=== PATIENT | female | born 1945 | race Two or more races ===

== ENCOUNTER 2024-02-27 22:09 | Inpatient (IN) | payer MEDICARE, MEDICAID ==
[~2024-02-27] VITALS: Ht 157.5 cm; Wt 68.0 kg
[2024-02-27 22:33] LABS: BASOPHILS # (AUTO) 0.1 K/uL (0.0-0.2); BASOPHILS % (AUTO) 0.8 % (0.0-2.0); EOSINOPHILS # (AUTO) 0.5 K/uL (0.0-0.7); EOSINOPHILS % (AUTO) 6.2 % (0.0-6.0); HEMATOCRIT 36 % (33-45); HEMOGLOBIN 12.4 g/dL (11.5-14.8); LYMPHOCYTES # (AUTO) 2.9 K/uL (0.8-4.8); LYMPHOCYTES % (AUTO) 35.8 % (20.0-44.0); MEAN CORPUSCULAR HEMOGLOBIN 31 PG (26.0-33.0); MEAN CORPUSCULAR HGB CONC 34 g/dl (31.0-36.0); MEAN CORPUSCULAR VOLUME 89 fL (82-100); MONOCYTES # (AUTO) 0.4 K/uL (0.1-1.30); MONOCYTES % (AUTO) 4.9 % (2.0-12.0); NEUTROPHILS # (AUTO) 4.2 K/uL (1.8-8.9); NEUTROPHILS % (AUTO) 52.3 % (43.0-81.0); PLATELET COUNT (AUTO) 346 K/uL (150-450); RED BLOOD CELL COUNT(AUTO) 4.07 MIL/uL (4.0-5.2); RED CELL DISTRIBUTION WIDTH 14.1 % (11.5-15.0)
[2024-02-27 22:40] LABS: CALCIUM, SERUM 8.9 mg/dL (8.5-10.1); CARBON DIOXIDE 27 mmol/L (21-32); CHLORIDE 111 mmol/L (98-107); CREATININE 0.7 mg/dL (0.6-1.3); GLUCOSE 111 mg/dL (74-106); POTASSIUM 3.7 mmol/L (3.5-5.1); SODIUM SERUM 142 mmol/L (136-145); UREA NITROGEN, BLOOD 21 mg/dL (7-18)
[2024-02-27 22:46] LABS: ALANINE AMINOTRANSFERASE 20 U/L (12-78); ALBUMIN 3.2 g/dL (3.4-5.0); ALCOHOL, BLOOD < 3 mg/dL (0-10); ALKALINE PHOSPHATASE 89 U/L (46-116); ASPARTATE AMINOTRANSFERASE 13 U/L (15-37); BILIRUBIN,DIRECT 0.1 mg/dL (0.0-0.2); BILIRUBIN,TOTAL 0.3 mg/dL (0.2-1.0); TOTAL PROTEIN, SERUM 6.5 g/dL (6.4-8.2)
[2024-02-27 22:47] LABS: ACETAMINOPHEN <10 ug/ml (10-30); SALICYLATE 1.1 mg/dL (2.8-20.0)
[2024-02-27 23:49] LABS: APPEARANCE,URINE SLIGHTLY CLOUDY (CLEAR); BILIRUBIN,URINE NEGATIVE (NEGATIVE); BLOOD, URINE NEGATIVE Ery/uL (NEGATIVE); COLOR,URINE YELLOW (YELLOW); KETONES,URINE TRACE mg/dL (NEGATIVE); LEUKOCYTE ESTERASE ,URINE NEGATIVE (NEGATIVE); NITRITE, URINE NEGATIVE (NEGATIVE); PROTEIN,URINE NEGATIVE (NEGATIVE); UGLUCOSE NEGATIVE (NEGATIVE); UROBILINOGEN,URINE 0.2 EU/dL (0.2)
[2024-02-28 00:11] LABS: ADD URINE CULTURE YES; BACTERIA,URINE 4+ /HPF (None Seen); RBC,URINE 0-2 /HPF (0-2); WBC,URINE 0-2 /HPF (0-3)
[2024-02-28 00:28] LABS: AMPHETAMINE, URINE NEGATIVE (NEGATIVE); BARBITURATE, URINE NEGATIVE (NEGATIVE); BENZODIAZEPINE, URINE NEGATIVE (NEGATIVE); CANNABINOID, URINE NEGATIVE (NEGATIVE); COCCAINE, URINE NEGATIVE (NEGATIVE); OPIATE, URINE NEGATIVE (NEGATIVE); PHENCYCLIDINE SCREEN,URINE NEGATIVE (NEGATIVE)
[2024-02-28] MEDS ORDERED: FOLI5VIA2 IJ (05:21)
[2024-02-28] MEDS ORDERED: ACET325T53 PO (05:21)
[2024-02-28] MEDS ORDERED: CYAN100020 SL (05:21)
[2024-02-28] MEDS ORDERED: MEMA5TAB42 PO (05:21)
[2024-02-28] MEDS ORDERED: GABA-532 PO (05:21)
[2024-02-28] MEDS ORDERED: GUAI118L49 PO (05:21)
[2024-02-28] MEDS ORDERED: ACET-2030 PO (05:21)
[2024-02-28] MEDS ORDERED: DULO30CA2 PO (05:21)
[2024-02-28] MEDS ORDERED: ATOR40TA PO (05:21)
[2024-02-28] MEDS ORDERED: CALC-167 PO (05:21)
[2024-02-28] MEDS ORDERED: DONE10TA44 PO (05:21)
[2024-02-28] MEDS ORDERED: MULT-754 PO (07:52)
[2024-02-28] MEDS ORDERED: DONE5TAB34 PO (07:52)
[2024-02-28] MEDS ORDERED: FOLI0.4T6 PO (07:52)
[2024-02-28] MEDS ORDERED: CYAN500T64 PO (07:52)
[2024-02-28] MEDS ORDERED: OLANZAPINE 10 MG VIAL IM ONE (10:15)
[2024-02-28] MEDS: OLANZAPINE 10 MG VIAL IM ONE (10:27)
[2024-02-28 14:54] VITALS: BP 156/70; TEMP 98.2; O2SAT 97
[2024-02-28 15:52] VITALS: BP 122/59; TEMP 97.5; O2SAT 97
[2024-02-28 16:00] VITALS: BP 122/59; TEMP 97.5; O2SAT 97
[2024-02-28] MEDS ORDERED: ZOLPIDEM TARTRATE 5 MG TABLET PO PRN (16:30)
[2024-02-28] MEDS ORDERED: MAG HYDROX/AL HYDROX/SIMETH 30 ML UDC PO PRN (16:30)
[2024-02-28] MEDS ORDERED: MAGNESIUM HYDROXIDE 30 ML UDC PO PRN (16:30)
[2024-02-28] MEDS: BLOOD SUGAR DIAGNOSTIC 1 EACH STRIP IN ONE (16:57)
[2024-02-28] MEDS: GABAPENTIN 100 MG CAPSULE PO SCH (17:54)
[2024-02-28 20:00] VITALS: BP 112/59; TEMP 97.8; O2SAT 96
[2024-02-28] MEDS: DONEPEZIL 5 MG TABLET PO SCH (22:54)
[2024-02-28] MEDS: ATORVASTATIN 40 MG TABLET PO SCH (22:54)
[2024-02-28] MEDS: MEMANTINE HCL 5 MG TABLET PO SCH (22:54)
[2024-02-29 08:00] VITALS: BP 158/76; TEMP 97.5; O2SAT 96
[2024-02-29 08:48] LABS: CHOLESTEROL 160 mg/dL (<200); HDL CHOLESTEROL 39 mg/dL (40-60); LDL 101 mg/dL (0-99); TRIGLYCERIDES 93 mg/dL (30-150)
[2024-02-29] MEDS ORDERED: DULOXETINE HCL 30 MG CAPSULE.DR PO SCH (09:00)
[2024-02-29 09:25] LABS: ALBUMIN 3.2 g/dL (3.4-5.0); BILIRUBIN,TOTAL 0.4 mg/dL (0.2-1.0); CALCIUM, SERUM 9.1 mg/dL (8.5-10.1); CREATININE 0.8 mg/dL (0.6-1.3); POTASSIUM 3.6 mmol/L (3.5-5.1)
[2024-02-29 16:00] VITALS: BP 109/93; TEMP 98; O2SAT 94
[2024-02-29] MEDS: Z GUARD REMEDY 4 OZ OINT TP SCH (16:28)
[2024-02-29] MEDS: GABAPENTIN 100 MG CAPSULE PO SCH (16:28)
[2024-02-29 16:49] LABS: CREATININE 0.7 mg/dL (0.6-1.3)
[2024-02-29 19:49] VITALS: BP 108/60; TEMP 98.1; O2SAT 94
[2024-02-29] MEDS ORDERED: DEXTROSE 50%-WATER 50 ML DISP.SYRIN IV PRN (20:00)
[2024-02-29] MEDS: BLOOD SUGAR DIAGNOSTIC 1 EACH STRIP IN SCH (22:37)
[2024-03-01 08:00] VITALS: BP 144/69; TEMP 98.7; O2SAT 94
[2024-03-01] MEDS: ENSURE ENLIVE CHOC 237 ML CAN PO SCH ×2 (08:14→12:42)
[2024-03-01] MEDS ORDERED: busPIRone 5 MG TABLET PO SCH (13:00)
[2024-03-01] MEDS: INSULIN REGULAR, HUMAN 100 UNIT/ML 3 ML VIAL SQ PRN (13:15)
[2024-03-01 16:00] VITALS: BP 134/100; TEMP 98.1; O2SAT 96
[2024-03-02 08:00] VITALS: BP 138/84; TEMP 97.7; O2SAT 94
[2024-03-02] MEDS: busPIRone 5 MG TABLET PO SCH (09:00)
[2024-03-02] MEDS: QUETIAPINE FUMARATE 25 MG TABLET PO PRN (09:36)
[2024-03-02] MEDS: OXCARBAZEPINE 150 MG TABLET PO SCH (13:29)
[2024-03-02 16:00] VITALS: BP_SYST 137; BP_SYST 93; BP_DIAS 68; BP_DIAS 83; TEMP 97.6; TEMP 98; O2SAT 100; O2SAT 94
[2024-03-02 21:01] VITALS: BP 118/79; TEMP 97.9; O2SAT 96
[2024-03-02] MEDS: MIRTAZAPINE 15 MG TABLET PO SCH (21:28)
[2024-03-03 08:00] VITALS: BP 125/74; TEMP 98.1; O2SAT 97
[2024-03-03] MEDS: OXCARBAZEPINE 150 MG TABLET PO SCH (13:48)
[2024-03-03 16:00] VITALS: BP 123/98; TEMP 98.7; O2SAT 99
[2024-03-03 20:39] VITALS: BP 137/98; TEMP 98.3; O2SAT 95
[2024-03-04 08:00] VITALS: BP 155/90; TEMP 97.9; O2SAT 95
[2024-03-04 16:00] VITALS: BP 100/77; TEMP 98; O2SAT 96
[2024-03-04 20:07] VITALS: BP 123/48; TEMP 98.1; O2SAT 83
[2024-03-05 06:02] VITALS: BP 120/60; TEMP 98
[2024-03-05 08:00] VITALS: BP 139/81; TEMP 97.9; O2SAT 97
[2024-03-05] MEDS: GLUCERNA SHAKE 237 ML CAN PO SCH (08:03)
[2024-03-05 16:00] VITALS: BP 140/71; TEMP 98.1; O2SAT 97
[2024-03-05 20:00] VITALS: BP 120/79; TEMP 98.3; O2SAT 98
[2024-03-06 08:00] VITALS: BP 132/80; TEMP 97.9; O2SAT 96
[2024-03-06 16:00] VITALS: BP 129/71; TEMP 99; O2SAT 95
[2024-03-06 21:01] VITALS: BP 135/84; TEMP 98.8; O2SAT 94
[2024-03-06] MEDS: QUETIAPINE FUMARATE 25 MG TABLET PO SCH (21:33)
[2024-03-07 08:00] VITALS: BP 120/67; TEMP 99; O2SAT 98
[2024-03-07 12:57] VITALS: BP 141/91; TEMP 98.4
[2024-03-07 16:00] VITALS: BP 127/75; TEMP 98.9; O2SAT 98
[2024-03-07 20:00] VITALS: BP 132/72; TEMP 98.9; O2SAT 96
[2024-03-08 08:55] VITALS: BP 133/62; TEMP 98; O2SAT 94
[2024-03-08 15:36] LABS: ALBUMIN 2.6 g/dL (3.4-5.0); BILIRUBIN,TOTAL 0.4 mg/dL (0.2-1.0); CALCIUM, SERUM 9.2 mg/dL (8.5-10.1); CREATININE 0.9 mg/dL (0.6-1.3); POTASSIUM 4.6 mmol/L (3.5-5.1); TOTAL PROTEIN, SERUM 7.4 g/dL (6.4-8.2)
[2024-03-08 15:45] LABS: MAGNESIUM 1.6 mg/dL (1.8-2.4)
[2024-03-08 16:28] LABS: BASOPHILS % (AUTO) 0.4 % (0.0-2.0); EOSINOPHILS # (AUTO) 0.1 K/uL (0.0-0.7); EOSINOPHILS % (AUTO) 0.8 % (0.0-6.0); HEMATOCRIT 39 % (33-45); HEMOGLOBIN 13.2 g/dL (11.5-14.8); LYMPHOCYTES # (AUTO) 1.4 K/uL (0.8-4.8); LYMPHOCYTES % (AUTO) 11.9 % (20.0-44.0); MEAN CORPUSCULAR HEMOGLOBIN 30 PG (26.0-33.0); MEAN CORPUSCULAR HGB CONC 34 g/dl (31.0-36.0); MEAN CORPUSCULAR VOLUME 89 fL (82-100); MONOCYTES % (AUTO) 8.3 % (2.0-12.0); NEUTROPHILS # (AUTO) 9.2 K/uL (1.8-8.9); NEUTROPHILS % (AUTO) 78.6 % (43.0-81.0); PLATELET COUNT (AUTO) 311 K/uL (150-450); RED BLOOD CELL COUNT(AUTO) 4.36 MIL/uL (4.0-5.2); RED CELL DISTRIBUTION WIDTH 13.9 % (11.5-15.0); WHITE BLOOD COUNT (AUTO) 11.7 K/uL (4.3-11.0)
[2024-03-08 21:05] VITALS: BP 146/85; TEMP 98; O2SAT 95
[2024-03-09 07:30] LABS: BASOPHILS # (AUTO) 0.1 K/uL (0.0-0.2); EOSINOPHILS # (AUTO) 0.1 K/uL (0.0-0.7); EOSINOPHILS % (AUTO) 1.1 % (0.0-6.0); HEMATOCRIT 39 % (33-45); HEMOGLOBIN 13.2 g/dL (11.5-14.8); LYMPHOCYTES # (AUTO) 1.9 K/uL (0.8-4.8); LYMPHOCYTES % (AUTO) 17.1 % (20.0-44.0); MEAN CORPUSCULAR HEMOGLOBIN 30 PG (26.0-33.0); MEAN CORPUSCULAR HGB CONC 33 g/dl (31.0-36.0); MEAN CORPUSCULAR VOLUME 90 fL (82-100); MONOCYTES % (AUTO) 8.8 % (2.0-12.0); PLATELET COUNT (AUTO) 311 K/uL (150-450); RED BLOOD CELL COUNT(AUTO) 4.36 MIL/uL (4.0-5.2); RED CELL DISTRIBUTION WIDTH 13.9 % (11.5-15.0); WHITE BLOOD COUNT (AUTO) 11.1 K/uL (4.3-11.0)
[2024-03-09 08:00] VITALS: BP 149/85; TEMP 98.6; O2SAT 94
[2024-03-09 08:35] LABS: CALCIUM, SERUM 9.4 mg/dL (8.5-10.1); CREATININE 0.8 mg/dL (0.6-1.3); MAGNESIUM 2.7 mg/dL (1.8-2.4); PHOSPHORUS 3.8 mg/dL (2.5-4.9); POTASSIUM 4.5 mmol/L (3.5-5.1)
[2024-03-09] MEDS: ACETAMINOPHEN 325 MG TABLET PO PRN (14:52)
[2024-03-09 16:00] VITALS: BP 145/83; TEMP 100.4; O2SAT 93
[2024-03-09 17:54] LABS: APPEARANCE,URINE SLIGHTLY CLOUDY (CLEAR); BILIRUBIN,URINE NEGATIVE (NEGATIVE); BLOOD, URINE 3+ Ery/uL (NEGATIVE); COLOR,URINE YELLOW (YELLOW); KETONES,URINE NEGATIVE (NEGATIVE); LEUKOCYTE ESTERASE ,URINE 3+ (NEGATIVE); NITRITE, URINE NEGATIVE (NEGATIVE); PROTEIN,URINE 2+ mg/dl (NEGATIVE); UGLUCOSE 3+ mg/dL (NEGATIVE)
[2024-03-09 17:57] LABS: PH,URINE 8.5 (5.0-8.0)
[2024-03-09 18:07] LABS: RBC,URINE 51-80 /HPF (0-2); WBC,URINE 51-80 /HPF (0-3)
[2024-03-09 18:08] LABS: ADD URINE CULTURE YES; BACTERIA,URINE 3+ /HPF (None Seen); SQUAMOUS EPITHELIAL CELL,UR 0-2 /HPF (None Seen)
[2024-03-10] MEDS ORDERED: BLOO-668 IN (09:31)
[2024-03-10] MEDS ORDERED: NUT.237L30 PO (09:31)
[2024-03-10] MEDS ORDERED: ZOLP5TAB2 PO (09:31)
[2024-03-10] MEDS ORDERED: ALLA266C2 TP (09:31)
[2024-03-10] MEDS ORDERED: MAGN400O6 PO (09:31)
[2024-03-10] MEDS ORDERED: DEXT50DI8 IV (09:31)
[2024-03-10] MEDS ORDERED: *INS REG3 SQ (09:31)
[2024-03-10] MEDS ORDERED: MAG30ORA PO (09:31)
== END 2024-03-09 19:35 | disposition short-term general hospital (02) | DRG 885 ==
LOC: ER 22:25 → GPS 02-28 10:31
PROVIDERS: ADMIT Psychiatry & Neurology Psychiatry; ATTEND Internal Medicine
DX: F39 Unspecified mood [affective] disorder (principal); E44.1 Mild protein-calorie malnutrition; N39.0 Urinary tract infection, site not specified; G93.40 Encephalopathy, unspecified; F03.918 Unspecified dementia, unspecified severity, with other behavioral disturbance; F03.93 Unspecified dementia, unspecified severity, with mood disturbance; F29 Unspecified psychosis not due to a substance or known physiological condition; E86.0 Dehydration; E78.5 Hyperlipidemia, unspecified; E88.09 Other disorders of plasma-protein metabolism, not elsewhere classified; I10 Essential (primary) hypertension; R62.7 Adult failure to thrive; Z68.27 Body mass index [BMI] 27.0-27.9, adult; Z20.822 Contact with and (suspected) exposure to COVID-19; E11.9 Type 2 diabetes mellitus without complications
CPT/HCPCS: 36415; 71045-TC; 80048-TC; 80053-TC; 80061-TC; 80076-TC; 81001; 82565-TC; 82962-TC; 83735-TC; 84100-TC; 85025-TC; 87040-TC; 87086-TC; 97110-TC; 97112-TC; 97116-TC; 97530-TC; G0480; J1815; J3490

== ENCOUNTER 2024-03-09 19:42 | Inpatient (IN) | payer MEDICARE, OTHER ==
[~2024-03-09] VITALS: Ht 157.5 cm; Wt 51.3 kg
[~2024-03-09 19:42] MED LIST: ACET-2030 PO; ACET325T53 PO; ATOR40TA PO; CALC-167 PO; CYAN500T64 PO; DONE5TAB34 PO; DULO30CA2 PO; FOLI0.4T6 PO; GABA-532 PO; GUAI118L49 PO; MEMA5TAB42 PO; MULT-754 PO
[2024-03-09 20:10] VITALS: BP 149/83; TEMP 100.4; O2SAT 94
[2024-03-09] MEDS ORDERED: ZOLPIDEM TARTRATE 5 MG TABLET PO PRN (21:00)
[2024-03-09] MEDS ORDERED: ACETAMINOPHEN 325 MG TABLET PO PRN (21:00)
[2024-03-09] MEDS ORDERED: Z GUARD REMEDY 4 OZ OINT TP PRN (21:00)
[2024-03-09] MEDS ORDERED: MAGNESIUM HYDROXIDE 30 ML UDC PO PRN (21:00)
[2024-03-09] MEDS ORDERED: MAG HYDROX/AL HYDROX/SIMETH 30 ML UDC PO PRN (21:00)
[2024-03-09] MEDS ORDERED: ONDANSETRON HCL/PF 4 MG/2 ML VIAL IVP PRN (21:00)
[2024-03-09] MEDS: DONEPEZIL 5 MG TABLET PO SCH (22:00)
[2024-03-09] MEDS: MEMANTINE HCL 5 MG TABLET PO SCH (22:00)
[2024-03-09] MEDS: ATORVASTATIN 40 MG TABLET PO SCH (22:00)
[2024-03-09] MEDS: CEFTRIAXONE 1GM BAG (ER ONLY) 50 ML IV ONE (22:29)
[2024-03-09] MEDS: CEFTRIAXONE 1 G in IV D5W 50 ML IV SCH (22:58)
[2024-03-09] MEDS: IV D5/0.45 NACL 1,000 ML IV ONE (23:37)
[2024-03-10] MEDS: ENOXAPARIN SODIUM 30 MG/0.3 ML DISP.SYRIN SQ SCH (02:38)
[2024-03-10] MEDS ORDERED: DEXTROSE 50%-WATER 50 ML DISP.SYRIN IV PRN (03:30)
[2024-03-10 04:40] VITALS: BP 149/83; TEMP 100.4; O2SAT 94
[2024-03-10] MEDS: BLOOD SUGAR DIAGNOSTIC 1 EACH STRIP IN SCH (06:09)
[2024-03-10 07:30] LABS: CALCIUM, SERUM 8.9 mg/dL (8.5-10.1); CREATININE 0.7 mg/dL (0.6-1.3); MAGNESIUM 2.5 mg/dL (1.8-2.4); POTASSIUM 3.9 mmol/L (3.5-5.1)
[2024-03-10 07:41] LABS: BASOPHILS # (AUTO) 0.1 K/uL (0.0-0.2); BASOPHILS % (AUTO) 0.5 % (0.0-2.0); EOSINOPHILS # (AUTO) 0.3 K/uL (0.0-0.7); EOSINOPHILS % (AUTO) 2.4 % (0.0-6.0); HEMATOCRIT 37 % (33-45); HEMOGLOBIN 12.2 g/dL (11.5-14.8); LYMPHOCYTES # (AUTO) 1.9 K/uL (0.8-4.8); LYMPHOCYTES % (AUTO) 15.6 % (20.0-44.0); MEAN CORPUSCULAR HEMOGLOBIN 30 PG (26.0-33.0); MEAN CORPUSCULAR HGB CONC 33 g/dl (31.0-36.0); MEAN CORPUSCULAR VOLUME 92 fL (82-100); MONOCYTES # (AUTO) 1.2 K/uL (0.1-1.30); MONOCYTES % (AUTO) 9.9 % (2.0-12.0); NEUTROPHILS # (AUTO) 8.6 K/uL (1.8-8.9); NEUTROPHILS % (AUTO) 71.6 % (43.0-81.0); PLATELET COUNT (AUTO) 258 K/uL (150-450); RED BLOOD CELL COUNT(AUTO) 4.07 MIL/uL (4.0-5.2); RED CELL DISTRIBUTION WIDTH 14.1 % (11.5-15.0)
[2024-03-10 08:30] VITALS: BP 142/78; TEMP 99; O2SAT 97
[2024-03-10] MEDS: MULTIVITAMINS,THERAGRAN 1 UDTAB TABLET PO SCH (09:00)
[2024-03-10] MEDS: CALCIUM CARB 600MG /VIT D 1 EACH TABLET PO SCH (09:00)
[2024-03-10] MEDS: FOLIC ACID 1 MG TABLET PO SCH (09:00)
[2024-03-10] MEDS: DULOXETINE HCL 30 MG CAPSULE.DR PO SCH (09:00)
[2024-03-10] MEDS: CYANOCOBALAMIN 500 MCG TABLET PO SCH (09:00)
[2024-03-10] MEDS: GABAPENTIN 100 MG CAPSULE PO SCH (09:00)
[2024-03-10] MEDS ORDERED: NUT.237L30 PO (09:31)
[2024-03-10] MEDS ORDERED: MAG30ORA PO (09:31)
[2024-03-10] MEDS ORDERED: DEXT50DI8 IV (09:31)
[2024-03-10] MEDS ORDERED: ALLA266C2 TP (09:31)
[2024-03-10] MEDS ORDERED: MAGN400O6 PO (09:31)
[2024-03-10] MEDS ORDERED: ZOLP5TAB2 PO (09:31)
[2024-03-10] MEDS ORDERED: *INS REG3 SQ (09:31)
[2024-03-10] MEDS ORDERED: BLOO-668 IN (09:31)
[2024-03-10 16:00] VITALS: BP 141/95; TEMP 98.8; O2SAT 95
[2024-03-10] MEDS: CEFTRIAXONE 1 G in IV D5W 50 ML IV SCH (19:49)
[2024-03-10 20:00] VITALS: BP 139/79; TEMP 98.8; O2SAT 98
[2024-03-10 20:31] VITALS: BP 139/79; TEMP 98.8; O2SAT 98
[2024-03-10] MEDS: IV D5/0.45 NACL 1,000 ML IV SCH (22:07)
[2024-03-10] MEDS: INSULIN REGULAR, HUMAN 100 UNIT/ML 3 ML VIAL SQ PRN (23:01)
[2024-03-11 08:00] VITALS: BP 149/78; TEMP 98.5; O2SAT 98
[2024-03-11 11:37] LABS: BASOPHILS # (AUTO) 0.1 K/uL (0.0-0.2); BASOPHILS % (AUTO) 0.6 % (0.0-2.0); EOSINOPHILS # (AUTO) 0.4 K/uL (0.0-0.7); EOSINOPHILS % (AUTO) 3.8 % (0.0-6.0); HEMATOCRIT 38 % (33-45); HEMOGLOBIN 12.9 g/dL (11.5-14.8); LYMPHOCYTES # (AUTO) 1.6 K/uL (0.8-4.8); LYMPHOCYTES % (AUTO) 17.4 % (20.0-44.0); MEAN CORPUSCULAR HEMOGLOBIN 31 PG (26.0-33.0); MEAN CORPUSCULAR HGB CONC 34 g/dl (31.0-36.0); MEAN CORPUSCULAR VOLUME 92 fL (82-100); MONOCYTES # (AUTO) 0.7 K/uL (0.1-1.30); NEUTROPHILS # (AUTO) 6.8 K/uL (1.8-8.9); NEUTROPHILS % (AUTO) 71.2 % (43.0-81.0); PLATELET COUNT (AUTO) 218 K/uL (150-450); RED BLOOD CELL COUNT(AUTO) 4.15 MIL/uL (4.0-5.2); RED CELL DISTRIBUTION WIDTH 14.1 % (11.5-15.0); WHITE BLOOD COUNT (AUTO) 9.5 K/uL (4.3-11.0)
[2024-03-11 11:50] LABS: CALCIUM, SERUM 8.9 mg/dL (8.5-10.1); CREATININE 0.7 mg/dL (0.6-1.3); MAGNESIUM 2.3 mg/dL (1.8-2.4); PHOSPHORUS 2.5 mg/dL (2.5-4.9); POTASSIUM 3.5 mmol/L (3.5-5.1)
[2024-03-11 12:03] LABS: ALBUMIN 2.2 g/dL (3.4-5.0); BILIRUBIN,TOTAL 0.3 mg/dL (0.2-1.0); TOTAL PROTEIN, SERUM 7.3 g/dL (6.4-8.2)
[2024-03-11 16:00] VITALS: BP 152/85; TEMP 98.4; O2SAT 98
[2024-03-11 20:00] VITALS: BP 159/85; TEMP 97.9; O2SAT 100
[2024-03-11 20:48] VITALS: BP 159/85; TEMP 97.9; O2SAT 100
[2024-03-12 08:00] VITALS: BP 153/82; TEMP 98.1; O2SAT 97
[2024-03-12 16:00] VITALS: BP 141/72; TEMP 98; O2SAT 96
[2024-03-12 20:00] VITALS: BP 144/77; TEMP 97.8; O2SAT 96
[2024-03-13 06:09] LABS: BASOPHILS % (AUTO) 0.4 % (0.0-2.0); EOSINOPHILS # (AUTO) 0.3 K/uL (0.0-0.7); EOSINOPHILS % (AUTO) 3.9 % (0.0-6.0); HEMATOCRIT 36 % (33-45); HEMOGLOBIN 11.5 g/dL (11.5-14.8); LYMPHOCYTES % (AUTO) 22.6 % (20.0-44.0); MEAN CORPUSCULAR HEMOGLOBIN 30 PG (26.0-33.0); MEAN CORPUSCULAR HGB CONC 32 g/dl (31.0-36.0); MEAN CORPUSCULAR VOLUME 93 fL (82-100); MONOCYTES # (AUTO) 0.8 K/uL (0.1-1.30); MONOCYTES % (AUTO) 9.5 % (2.0-12.0); NEUTROPHILS # (AUTO) 5.7 K/uL (1.8-8.9); NEUTROPHILS % (AUTO) 63.6 % (43.0-81.0); PLATELET COUNT (AUTO) 232 K/uL (150-450); RED BLOOD CELL COUNT(AUTO) 3.85 MIL/uL (4.0-5.2); RED CELL DISTRIBUTION WIDTH 13.6 % (11.5-15.0); WHITE BLOOD COUNT (AUTO) 8.9 K/uL (4.3-11.0)
[2024-03-13 06:29] LABS: BILIRUBIN,TOTAL 0.3 mg/dL (0.2-1.0); CALCIUM, SERUM 8.6 mg/dL (8.5-10.1); CREATININE 0.6 mg/dL (0.6-1.3); MAGNESIUM 2.1 mg/dL (1.8-2.4); PHOSPHORUS 3.4 mg/dL (2.5-4.9); POTASSIUM 3.3 mmol/L (3.5-5.1); TOTAL PROTEIN, SERUM 6.3 g/dL (6.4-8.2)
[2024-03-13 08:00] VITALS: BP 160/70; TEMP 97.9; TEMP 98.2; O2SAT 95; O2SAT 99
[2024-03-13] MEDS: POTASSIUM CHLORIDE 20 MEQ TAB.PRT.SR PO ONE (09:41)
[2024-03-13 16:00] VITALS: BP 178/101; TEMP 98.6; O2SAT 96
== END 2024-03-13 16:30 | DRG 640 ==
LOC: MED 19:42
PROVIDERS: ADMIT Nurse Practitioner Family
DX: E87.0 Hyperosmolality and hypernatremia (principal); N17.0 Acute kidney failure with tubular necrosis; N39.0 Urinary tract infection, site not specified; D68.59 Other primary thrombophilia; E44.1 Mild protein-calorie malnutrition; F03.93 Unspecified dementia, unspecified severity, with mood disturbance; F03.92 Unspecified dementia, unspecified severity, with psychotic disturbance; F03.911 Unspecified dementia, unspecified severity, with agitation; E86.0 Dehydration; B96.89 Other specified bacterial agents as the cause of diseases classified elsewhere; E78.5 Hyperlipidemia, unspecified; R73.9 Hyperglycemia, unspecified; F29 Unspecified psychosis not due to a substance or known physiological condition; E88.09 Other disorders of plasma-protein metabolism, not elsewhere classified; R62.7 Adult failure to thrive; Z73.6 Limitation of activities due to disability
CPT/HCPCS: 36415; 80048-TC; 80053-TC; 82962-TC; 83735-TC; 84100-TC; 85025-TC; 87086-TC; 92526; 92611-TC; A4223; G0378; J0696; J1650; J1815; J3490; J7050; J7060